=== PATIENT | female | born 1960 | race Caucasian/White ===

== ENCOUNTER 2023-08-19 04:53 | Day surgery (SDC) | payer OTHER ==
[2023-08-19 07:36] VITALS: BMI 41.9
[2023-08-19 09:43] VITALS: TEMP 97.3
[2023-08-19 10:09] VITALS: BP 136/65; PULSE 61; RESP 16
== END 2023-08-19 10:21 | disposition home or self-care (01) ==
LOC: JASU-ENDO 04:53
PROVIDERS: ATTEND Internal Medicine Gastroenterology
PROC: 0DB98ZX Excision of Duodenum, Via Natural or Artificial Opening Endoscopic, Diagnostic (ICD-10-PCS; 2023-08-19)
PROC: 0DB78ZX Excision of Stomach, Pylorus, Via Natural or Artificial Opening Endoscopic, Diagnostic (ICD-10-PCS; 2023-08-19)
PROC: 0DB68ZX Excision of Stomach, Via Natural or Artificial Opening Endoscopic, Diagnostic (ICD-10-PCS; 2023-08-19)
PROC: 0DBE8ZX Excision of Large Intestine, Via Natural or Artificial Opening Endoscopic, Diagnostic (ICD-10-PCS; 2023-08-19)
PROC: 0DBL8ZX Excision of Transverse Colon, Via Natural or Artificial Opening Endoscopic, Diagnostic (ICD-10-PCS; principal; 2023-08-19 08:30)
DX: Z12.11 Encounter for screening for malignant neoplasm of colon (principal); D12.3 Benign neoplasm of transverse colon; R10.13 Epigastric pain; R19.7 Diarrhea, unspecified
CPT/HCPCS: 88305-TC; 88342-TC